=== PATIENT | female | born 2000 | race Two or more races ===

== ENCOUNTER 2021-04-26 16:18 | Inpatient (IN) | payer OTHER ==
[~2021-04-26] VITALS: Ht 152.4 cm; Wt 55.3 kg
[2021-04-26] MEDS ORDERED: PRENATAL + DHA1 EAC1 PO (16:33)
[2021-04-27] MEDS ORDERED: AZELASTIN-FLUTI23 GM (08:20)
== END 2021-04-28 12:10 | disposition home or self-care (01) | DRG 779 ==
LOC: EMR PED 16:18 → ER 16:22 → EMR PED 16:22 → LDR 21:12 → OB/GYN 21:12 → SURH 21:12 → LDR 21:38 → SURH 04-27 00:53
PROVIDERS: Specialist; ADMIT Obstetrics & Gynecology; ATTEND Obstetrics & Gynecology
PROC: 10D07Z8 Extraction of Products of Conception, Other, Via Natural or Artificial Opening (ICD-10-PCS; principal; 2021-04-26 22:00)
DX: O03.1 Delayed or excessive hemorrhage following incomplete spontaneous abortion (principal); Z20.822 Contact with and (suspected) exposure to COVID-19

== ENCOUNTER 2021-09-24 09:25 | Outpatient (CLI) | payer OTHER ==
[~2021-09-24 09:25] MED LIST: AZELASTIN-FLUTI23 GM; PRENATAL + DHA1 EAC1 PO
== END 2021-09-24 09:42 | disposition home or self-care (01) ==
LOC: SONOGRAMA 09:25
PROVIDERS: ATTEND Obstetrics & Gynecology Obstetrics
DX: N84.0 Polyp of corpus uteri (principal)